=== PATIENT | male | born 1985 | race African-American/Black ===

== ENCOUNTER 2017-06-29 03:56 | Emergency (ER) | payer MEDICAID, OTHER ==
[~2017-06-29] VITALS: Ht 190.5 cm; Wt 100.0 kg
[2017-06-29] MEDS ORDERED: ONDANSETRON 4MG ODT PO STA (04:13)
[2017-06-29 04:33] LABS: BASOPHILS % 0.5 % (0.0-2.0); EOSINOPHILS % 0.7 % (0.0-5.0); HEMATOCRIT. 44.3 % (42.0-52.0); HEMOGLOBIN. 15.2 g/dL (14.0-18.0); LYMPHOCYTES % 41.7 % (20.0-50.0); MEAN CORPUSCULAR VOLUME 81.6 fL (80.0-94.0); MONOCYTES % 4.3 % (2.0-8.0); NEUTROPHILS % 52.8 % (40.0-76.0); PLATELET 258 x1000/uL (130-400); RED BLOOD CELL COUNT 5.44 mill/uL (4.7-6.1); RED CELL DISTRIBUTION WIDTH 12.8 % (11.6-14.6)
[2017-06-29 04:40] LABS: CHLORIDE 107 mEq/L (98-107); ETHANOL BLOOD 223 mg/dL
[2017-06-29 05:03] VITALS: BP 129/79
== END 2017-06-29 05:05 | disposition home or self-care (01) ==
LOC: ER 03:56
DX: F10.129 Alcohol abuse with intoxication, unspecified (principal)
CPT/HCPCS: 36415; 80053; 85025; 99284; G0482; Q0162; Z7610